=== PATIENT | male | born 1990 | race Hispanic/Latino ===

== ENCOUNTER 2018-01-03 13:20 | Emergency (ER) | payer SELFPAY ==
[~2018-01-03 13:20] MED LIST: METF500T6 PO; NAPR-1023 PO; OMEP20TA2 PO; TYL3 PO
[2018-01-03] MEDS ORDERED: ONDANSETRON HCL 4 MG/2 ML VIAL ONE (13:47)
[2018-01-03] MEDS ORDERED: MORPHINE SULFATE 4 MG/1ML SYG ONE (13:48)
[2018-01-03 13:50] LABS: BASOPHILS % (AUTO) 0.4 % (0.0-5.0); EOSINOPHILS % (AUTO) 0.9 % (0.0-8.0); HEMATOCRIT 45.4 % (42-54); LYMPHOCYTES % (AUTO) 18.7 % (21.0-51.0); MEAN CORPUSCULAR HEMOGLOBIN 27.9 pg (27.0-33.0); MEAN CORPUSCULAR HGB CONC 34.1 g/dL (32.0-36.0); MEAN CORPUSCULAR VOLUME 81.8 fL (79-99); MONOCYTES % (AUTO) 7.1 % (3.0-13.0); NEUTROPHILS % (AUTO) 72.9 % (40.0-77.0); PLATELET COUNT (AUTO) 288 K/uL (130-400); RED BLOOD CELL COUNT(AUTO) 5.54 MIL/uL (4.50-6.20); WHITE BLOOD COUNT (AUTO) 10.6 K/uL (4.8-10.8)
[2018-01-03] MEDS ORDERED: IOPAMIDOL-370 75 ML VIAL IV ONE (14:06)
[2018-01-03 14:19] LABS: POTASSIUM 3.7 mmol/L (3.5-5.1)
[2018-01-03 14:23] LABS: ALBUMIN 4.2 g/dL (3.5-5.0); BILIRUBIN,TOTAL 0.6 mg/dL (0.2-1.0); TOTAL PROTEIN, SERUM 8.4 g/dL (6.0-8.3)
== END 2018-01-03 15:55 | disposition home or self-care (01) ==
LOC: EDH 13:20
DX: R10.30 Lower abdominal pain, unspecified (principal); K21.9 Gastro-esophageal reflux disease without esophagitis
CPT/HCPCS: 36415; 74177; 80053; 85025; 96374; 96375; 99285; J2270; J2405; Q9967

== ENCOUNTER 2019-01-23 23:57 | Emergency (ER) | payer OTHER ==
[~2019-01-23 23:57] MED LIST changes: +METF-444 PO; -METF500T6 PO
== END 2019-01-24 00:26 | disposition home or self-care (01) ==
LOC: EDH 23:57
DX: S46.011A Strain of muscle(s) and tendon(s) of the rotator cuff of right shoulder, initial encounter (principal); E11.9 Type 2 diabetes mellitus without complications; K21.9 Gastro-esophageal reflux disease without esophagitis; Z90.49 Acquired absence of other specified parts of digestive tract; Z72.0 Tobacco use; X50.0XXA Overexertion from strenuous movement or load, initial encounter; Y93.89 Activity, other specified; Y92.89 Other specified places as the place of occurrence of the external cause; Y99.8 Other external cause status
CPT/HCPCS: 99281

== ENCOUNTER 2019-02-05 23:24 | Emergency (ER) | payer SELFPAY ==
[2019-02-06] MEDS ORDERED: DiphenhydrAMINE HCL 50 MG/ML VIAL ONE (00:32)
== END 2019-02-06 00:44 | disposition home or self-care (01) ==
LOC: EDH 23:24
DX: L29.9 Pruritus, unspecified (principal); L30.9 Dermatitis, unspecified; E11.9 Type 2 diabetes mellitus without complications; K21.9 Gastro-esophageal reflux disease without esophagitis; Z90.49 Acquired absence of other specified parts of digestive tract
CPT/HCPCS: 96372; 99283; J1200

== ENCOUNTER 2019-03-07 21:47 | Emergency (ER) | payer SELFPAY | END 2019-03-07 21:57 | disposition home or self-care (01) | LOC: EDH 21:47 | DX: M62.830 Muscle spasm of back (principal); E11.9 Type 2 diabetes mellitus without complications; K21.9 Gastro-esophageal reflux disease without esophagitis; Z90.49 Acquired absence of other specified parts of digestive tract; Z87.891 Personal history of nicotine dependence ==

== ENCOUNTER → 2020-04-01 16:14 | Emergency (ER) | payer OTHER ==
[~2020-04-01 16:14] MED LIST changes: +LIDOCAINE HCL 1% 20 ML VIAL ONE; +TETANUS/DIPHTHERIA TOXOID [ADULT] 0.5 ML VIAL IM ONE
== END | disposition home or self-care (01) ==
LOC: EDH 16:14
DX: S61.412A Laceration without foreign body of left hand, initial encounter (principal); E11.9 Type 2 diabetes mellitus without complications; K21.9 Gastro-esophageal reflux disease without esophagitis; Z90.49 Acquired absence of other specified parts of digestive tract; X58.XXXA Exposure to other specified factors, initial encounter; Y93.89 Activity, other specified; Y92.89 Other specified places as the place of occurrence of the external cause; Y99.8 Other external cause status
CPT/HCPCS: 12001; 73120; 73130; 90471; 90714

== ENCOUNTER 2020-07-18 14:25 | Emergency (ER) | payer OTHER ==
[~2020-07-18 14:25] MED LIST changes: -LIDOCAINE HCL 1% 20 ML VIAL ONE; -TETANUS/DIPHTHERIA TOXOID [ADULT] 0.5 ML VIAL IM ONE
[2020-07-18] MEDS ORDERED: KETOROLAC TROMETHAMINE 60 MG/2 ML VIAL ONE (14:45)
== END 2020-07-18 15:05 | disposition home or self-care (01) ==
LOC: EDH 14:25
DX: S93.402A Sprain of unspecified ligament of left ankle, initial encounter (principal); S93.602A Unspecified sprain of left foot, initial encounter; E11.9 Type 2 diabetes mellitus without complications; K21.9 Gastro-esophageal reflux disease without esophagitis; Z90.49 Acquired absence of other specified parts of digestive tract; X58.XXXA Exposure to other specified factors, initial encounter; Y93.89 Activity, other specified; Y92.89 Other specified places as the place of occurrence of the external cause; Y99.8 Other external cause status
CPT/HCPCS: 73600; 73630; 96372; 99284; J1885

== ENCOUNTER 2023-02-12 21:03 | Emergency (ER) | payer OTHER ==
[~2023-02-12] VITALS: Ht 175.3 cm; Wt 111.1 kg
[~2023-02-12 21:03] MED LIST changes: +CYCL10TA16 PO; +NAPR500T6 PO
[2023-02-12 21:45] LABS: BASOPHILS % (AUTO) 0.8 % (0.0-5.0); EOSINOPHILS % (AUTO) 2.9 % (0.0-8.0); HEMATOCRIT 43.6 % (42-54); LYMPHOCYTES % (AUTO) 27.9 % (21.0-51.0); MEAN CORPUSCULAR HEMOGLOBIN 28.2 pg (27.0-33.0); MEAN CORPUSCULAR HGB CONC 35.1 g/dL (32.0-36.0); MEAN CORPUSCULAR VOLUME 80.4 fL (79-99); NEUTROPHILS % (AUTO) 61.2 % (40.0-77.0); PLATELET COUNT (AUTO) 262 K/uL (130-400); RED BLOOD CELL COUNT(AUTO) 5.42 MIL/uL (4.50-6.20); RED CELL DISTRIBUTION WIDTH 12.2 % (11.0-15.5); WHITE BLOOD COUNT (AUTO) 11.3 K/uL (4.8-10.8)
[2023-02-12 21:52] LABS: CREATININE 0.9 mg/dL (0.5-1.5); POTASSIUM 3.9 mmol/L (3.5-5.1)
[2023-02-12 21:57] LABS: TOTAL PROTEIN, SERUM 7.8 g/dL (6.0-8.3)
[2023-02-12] MEDS ORDERED: MECLIZINE HCL 25 MG TABLET PO ONE (22:00)
[2023-02-12] MEDS ORDERED: 0.9%NACL 1000ML 1,000 ML IV SCH (22:00)
[2023-02-12] MEDS ORDERED: KETOROLAC 30MG VIAL (30MG/ML) IVP ONE (22:00)
[2023-02-12] MEDS ORDERED: ONDANSETRON 4MG INJ IVP ONE (22:00)
[2023-02-12] MEDS ORDERED: MECL-262 PO (22:23)
[2023-02-12] MEDS ORDERED: IBUP-1493 PO (22:23)
[2023-02-12] MEDS ORDERED: ONDA-104 PO (22:23)
[2023-02-12 23:16] VITALS: BP 131/60
== END 2023-02-12 23:32 | disposition home or self-care (01) ==
LOC: EDH 21:03
DX: G43.909 Migraine, unspecified, not intractable, without status migrainosus (principal); R42 Dizziness and giddiness; R11.2 Nausea with vomiting, unspecified; Z79.84 Long term (current) use of oral hypoglycemic drugs; Z79.899 Other long term (current) drug therapy; Z90.49 Acquired absence of other specified parts of digestive tract; Z98.890 Other specified postprocedural states
CPT/HCPCS: 99285; 96374; 70450; 96361; 96375; 80053; 85025; 36415; J7030; J2405; J1885

== ENCOUNTER 2024-05-02 22:28 | Emergency (ER) | payer OTHER ==
[~2024-05-02] VITALS: Ht 175.3 cm; Wt 104.3 kg
[~2024-05-02 22:28] MED LIST changes: +IBUP-1493 PO; +MECL-262 PO; +NAPR-1506 PO; -NAPR500T6 PO; +ONDA-104 PO
[2024-05-02 22:29] VITALS: BP 162/90; PULSE 87; RESP 16; TEMP 99
[2024-05-03] MEDS ORDERED: NAPR-1505 PO (00:20)
[2024-05-03] MEDS: NAPROXEN 500 MG TABLET PO ONE (00:49)
== END 2024-05-03 01:05 | disposition home or self-care (01) ==
LOC: EDH 22:28
DX: S86.911A Strain of unspecified muscle(s) and tendon(s) at lower leg level, right leg, initial encounter (principal); E11.9 Type 2 diabetes mellitus without complications; Z90.49 Acquired absence of other specified parts of digestive tract; Z98.890 Other specified postprocedural states; Z79.84 Long term (current) use of oral hypoglycemic drugs; Z79.899 Other long term (current) drug therapy; W18.39XA Other fall on same level, initial encounter; Y93.89 Activity, other specified; Y92.89 Other specified places as the place of occurrence of the external cause; Y99.8 Other external cause status
CPT/HCPCS: 29505; 73562

== ENCOUNTER 2024-06-12 16:07 | Emergency (ER) | payer OTHER ==
[~2024-06-12] VITALS: Ht 175.3 cm; Wt 106.6 kg
[~2024-06-12 16:07] MED LIST changes: +NAPR-1505 PO
[2024-06-12] MEDS ORDERED: ACET-2079 PO (16:16)
[2024-06-12] MEDS ORDERED: MELO10CA3 PO (16:16)
--- NOTE | 2024-06-12 16:19 | ERN ---
General Chief Complaint: Knee Injury/Swelling Stated Complaint: RIGHT KNEE PAIN SINCE MAY 02 Time Seen by MD: 16:07 Time Seen by Midlevel: 16:07 Source: patient History of Present Illness Initial Comments Patient is a 33-year-old male presenting to the emergency department for pain control. Patient is reporting pain to his right knee. He states that appro ximately one month ago he injured his right knee at work. He obtained multiple x-rays that were all negative. He was sent for an MRI and is results came back abnormal. He has been having pain but the [facility] that has been going through did not want to prescribe any medications so they sent him here for pain control. Patient has no other concerns at this time. Allergies: Coded Allergies: No Known Allergies (Unverified Allergy, Unknown, 03/23/17) Home Meds Active Scripts Acetaminophen with Codeine (Acetaminophen-Cod #3 Tablet) 300 Mg-30 Mg Tablet, 1 TAB PO TID PRN for pain for 5 Days, #15 TAB 0 Refills Prov:BRANDI AGUILAR 06/12/24 Meloxicam, Submicronized (Meloxicam) 10 Mg Capsule, 10 MG PO BID for 7 Days, #14 CAP Prov:BRANDI AGUILAR 06/12/24 Naproxen (Naproxen) 375 Mg Tablet., 375 MG PO BID for 7 Days, #14 TAB Prov:MIKE NAVA MD 05/03/24 Ondansetron HCl (Ondansetron HCl) 4 Mg Tablet, 4 MG PO TIDP PRN for VOMITING, #20 TAB Prov:BOB DE LA TORRE MD 02/12/23 Ibuprofen (Motrin/Advil) 800 Mg Tab, 800 MG PO TID, #30 TAB Prov:BOB DE LA TORRE MD 02/12/23 Meclizine HCl (Antivert) 25 Mg Tab.chew, 25 MG PO TID, #60 TAB Prov:BOB DE LA TORRE MD 02/12/23 Naproxen (Naproxen) 500 Mg Tablet., 500 MG PO BIDPC, #15 TAB Prov:RADHA ROONEY 02/27/22 Cyclobenzaprine HCl (Flexeril) 10 Mg Tab, 10 MG PO TID, #15 TAB Prov:RADHA ROONEY 02/27/22 Reported Medications Omeprazole Magnesium (Prilosec Otc) 20 Mg Tablet.dr, 20 MG PO [id number] PRN for ABDOMINAL PAIN, TAB 03/23/17 Acetaminophen with Codeine (Tylenol with Codeine #3) 1 Tab Tab, 1 TAB PO [id number], TAB 03/23/17 Naproxen (Naproxen) 500 Mg Tablet, 500 MG PO BID, TAB 03/23/17 Metformin HCl (Metformin HCl) 500 Mg Tablet, 500 MG PO BID, TAB 03/23/17 Past Medical History Past Medical History: No Pertinent History Past Surgical History: Appendectomy, Other Surgical History Other: HERNIA UMBILICAL WITH MESH Social History Social History: Negative ROS Dictation CONSTITUTIONAL: Negative except for HPI HEAD/FACE: Negative except for HPI EENT: Negative except for HPI RESPIRATORY: Negative except for HPI GASTROINTESTINAL/ABDOMINAL: Negative except for HPI GENITOURINARY: Negative except for HPI MUSCULOSKELETAL: Negative except for HPI INTEGUMENTARY: Negative except for HPI NEUROLOGICAL/PSYCH: Negative except for HPI HEMATOLOGIC/LYMPHATIC: Negative except for HPI All Systems Negative, Except as noted above. 13 point review of systems assessed and all negative except for above. Physical Exam Physical Exam Dictation PHYSICAL EXAM: GENERAL: alert,, awake oriented x 3 HEENT: EOMI, Sclera non icteric, moist mucosa NECK: Supple, no JVD, trachea midline LUNGS: Clear breath sounds bilaterally. No wheezes HEART: Regular rate and rhythm. Normal S1 and S2, without murmurs ABD: Abdomen soft, nontender. Bowel sounds present EXT: No clubbing or cyanosis, NEURO: Alert and oriented to person, follows commands MDM MDM: Patient is a 33-year-old male presenting to the emergency department for pain control. Patient is reporting pain to his right knee. He states that approximately one month ago he injured his right knee at work. He obtained multiple x-rays that were all negative. He was sent for an MRI and is results came back abnormal. He has been having pain but the [facility] that has been going through did not want to prescribe any medications so they sent him here for pain control. Patient has no other concerns at this time. On physical examination patient appears to be in pain secondary to his right knee. His right knee has full range motion. Patient will be given 2 mg of morphine and 30 mg of ketorolac IM. He will be discharged home with pain prescriptions. Patient is agreeable with this plan and all of his questions have been answered. Patient is stable for discharge Differential diagnosis: Knee pain, knee strain, There are no social concerns with this patient. Prescription drug management Prescriptions will include: Tylenol with codeine, meloxicam Medical management and examination interpretation discussions were had by me with other qualified healthcare professionals as indicated for the patient's care. ED Course Orders Procedure Category Date Status Time Morphine 2mg Syg PHA 06/12/24 Complete (Morphine 2mg Syg) 16:30 Ketorolac PHA 06/12/24 Complete Tromethamine 30mg/Ml 16:30 Current Medications Medications (Trade) Dose Ordered Sig/Evaristo Route PRN Reason Start Time Stop Time Status Last Admin Dose Admin Ketorolac Tromethamine (toRADol) 30 mg ONCE ONCE IM 06/12/24 16:30 06/12/24 16:31 DC 06/12/24 17:01 Morphine Sulfate (morPHINE 2MG SYG) 2 mg ONCE ONCE IM 06/12/24 16:30 06/12/24 16:31 DC 06/12/24 17:01 Vital Signs Date Time Temp Pulse Resp B/P (MAP) Pulse Ox O2 Delivery O2 Flow Rate FiO2 06/12/24 16:21 98.4 85 20 134/91 98 Room Air* 0 21 06/12/24 16:07 99.3 85 20 134/91 98 Room Air DX & DISP Disposition: Discharge Departure Impression: Primary Impression: Right knee pain Condition: Stable Scripts Acetaminophen with Codeine (Acetaminophen-Cod #3 Tablet) 300 Mg-30 Mg Tablet 1 TAB PO TID PRN for pain for 5 Days, #15 TAB 0 Refills Prov: BRANDI AGUILAR 06/12/24 Meloxicam, Submicronized (Meloxicam) 10 Mg Capsule 10 MG PO BID for 7 Days, #14 CAP Prov: BRANDI AGUILAR 06/12/24 Referrals: JAMEL ERICKSON MD (PCP) I have reviewed the case, and I agree with, Diagnosis and Plan I performed the substantive portion of the visit. I have reviewed and personally made and approve the management plan that is documented in the note by myself or the ELL[facility]. I acknowledge for responsibility for the patient's management plan. BRANDI AGUILAR Jun 12, 2024 16:19 PATRICK RIGGS DO Jun 13, 2024 07:33
[2024-06-12 16:21] VITALS: BP 134/91; PULSE 85; RESP 20; TEMP 98.4; O2SAT 98
[2024-06-12] MEDS: morPHINE 2 MG SYG IM ONE (17:01)
[2024-06-12] MEDS: ketOROlac 30MG VIAL (30MG/ML) IM ONE (17:01)
== END 2024-06-12 17:38 | disposition home or self-care (01) ==
LOC: EDH 16:07
DX: M25.561 Pain in right knee (principal); Z79.1 Long term (current) use of non-steroidal anti-inflammatories (NSAID); Z79.84 Long term (current) use of oral hypoglycemic drugs; Z90.49 Acquired absence of other specified parts of digestive tract
CPT/HCPCS: 99284; 96372 ×2; J2270; J1885

== ENCOUNTER 2025-02-02 11:48 | Emergency (ER) | payer OTHER, BC ==
[~2025-02-02] VITALS: Ht 175.3 cm; Wt 106.6 kg
[~2025-02-02 11:48] MED LIST changes: +ACET-2079 PO; +MELO10CA3 PO; -NAPR-1023 PO; +NAPR-1194 PO
[2025-02-02] MEDS: ORPHENADRINE 60MG/2ML IM ONE (12:47)
--- NOTE | 2025-02-02 12:51 | ERN ---
General Chief Complaint: Shoulder Injury/Pain Stated Complaint: NECK /LEFT SHOUDLER PAIN Time Seen by MD: 12:01 Source: patient History of Present Illness Initial Comments Patient is a 34 year old male coming in complaining of muscle strain in his right and left trapezius area. He states that the pain started this morning when he woke up. He states that the pain is in increased with movement. Allergies: Coded Allergies: No Known Allergies (Unverified Allergy, Unknown, 03/23/17) Home Meds Active Scripts Acetaminophen with Codeine (Acetaminophen-Cod #3 Tablet) 300 Mg-30 Mg Tablet, 1 TAB PO TID PRN for pain for 5 Days, #15 TAB 0 Refills Prov:BRANDI AGUILAR 06/12/24 Meloxicam, Submicronized (Meloxicam) 10 Mg Capsule, 10 MG PO BID for 7 Days, #14 CAP Prov:BRANDI AGUILAR 06/12/24 Naproxen (Naproxen) 375 Mg Tablet., 375 MG PO BID for 7 Days, #14 TAB Prov:MIKE NAVA MD 05/03/24 Ondansetron HCl (Ondansetron HCl) 4 Mg Tablet, 4 MG PO TIDP PRN for VOMITING, #20 TAB Prov:BOB DE LA TORRE MD 02/12/23 Ibuprofen (Motrin/Advil) 800 Mg Tab, 800 MG PO TID, #30 TAB Prov:BOB DE LA TORRE MD 02/12/23 Meclizine HCl (Antivert) 25 Mg Tab.chew, 25 MG PO TID, #60 TAB Prov:BOB DE LA TORRE MD 02/12/23 Naproxen (Naproxen) 500 Mg Tablet., 500 MG PO BIDPC, #15 TAB Prov:RADHA ROONEYP 02/27/22 Cyclobenzaprine HCl (Flexeril) 10 Mg Tab, 10 MG PO TID, #15 TAB Prov:RADHA ROONEY AD COMPOSITOR 02/27/22 Reported Medications Omeprazole Magnesium (Prilosec Otc) 20 Mg Tablet., 20 MG PO [id number] PRN for ABDOMINAL PAIN, TAB 03/23/17 Acetaminophen with Codeine (Tylenol with Codeine #3) 1 Tab Tab, 1 TAB PO [id number], TAB 03/23/17 Naproxen (Naproxen) 500 Mg Tablet, 500 MG PO BID, TAB 03/23/17 Metformin HCl (Metformin HCl) 500 Mg Tablet, 500 MG PO BID, TAB 03/23/17 Past Medical History Past Medical History: No Pertinent History Past Surgical History: Appendectomy Surgical History Other: RT KNEE, UMB HERNIA REPAIR Social History Social History: Negative ROS Dictation CONSTITUTIONAL: No chills, no fever, no weakness, no diaphoresis, no malaise. HEAD/FACE: No signs of trauma. EENT: No eye pain, no blurred vision, no tearing, no double vision, no ear pain, no ear discharge, no nose pain, no nasal congestion, no throat pain, no throat swelling, no mouth pain. RESPIRATORY: No cough, no orthopnea, no SOB, no stridor, no wheezing. CARDIOVASCULAR: No chest pain, no edema, no palpitations, no syncope. GASTROINTESTINAL/ABDOMINAL: No abdominal pain, no constipation, no diarrhea, no nausea, no vomiting. GENITOURINARY: No abnormal discharge, no dysuria, no frequent urination, no hematuria. No complaints of pain in the genitals. MUSCULOSKELETAL: No back pain, no gout, no joint pain, no joint swelling, muscle pain, no muscle stiffness, no neck pain. INTEGUMENTARY: No change in color, no change in hair/nails, no dryness, no lesion, no lumps, no rash. NEUROLOGICAL/PSYCH: No anxiety, not depressed, no emotional problem, no headache, no numbness, no pre-existing deficit, no history of seizures, no tremors, no weakness. HEMATOLOGIC/LYMPHATIC: Not anemic, no history of blood clots, no apparent bleeding, no bruising, glands not swollen. All Systems Negative, Except as Noted. Physical Exam Physical Exam Dictation VITAL SIGNS: Reviewed. GENERAL APPEARANCE: Alert, oriented x3, no acute distress, obese. HEAD AND FACE: Non-traumatic. EYES: PERRL, pink conjunctivas, eyelid no trauma, anterior chamber clear. EARS: Pinnas intact and no signs of trauma or erythema. Ear canals clear and no discharge. TMs no erythema. NOSE: No discharge, no bleeding. OROPHARYNX: Mouth normal, teeth no caries, tongue pink. Pharynx clear, no erythema. Tonsils no exudates, no abscesses noted. Mucous membrane moist. NECK: Supple, non-tender, no thyromegaly, no masses, no JVD, no bruits. BREAST: Deferred. CHEST: No tenderness, no crepitus, no paradoxical movement, no retractions. LUNGS: Clear, well-ventilated, symmetric, no rales, no wheezing, no rhonchi, no stridor, good breath sounds bilaterally. HEART: Regular rate, regular rhythm, no murmur, no gallops. VASCULAR: No peripheral edema. ABDOMEN: Soft, positive bowel sounds, nondistended, no guarding, nontender, no rebound, no masses no hepatomegaly, no splenomegaly, no Owens's sign, no hernias. RECTAL: Deferred. GENITAL: Deferred. NEUROLOGICAL: Normal speech, gross motor function intact, gross sensory function intact. MUSCULOSKELETAL: Neck nontender, full range of motion, back nontender, full range of motion. EXTREMITIES: Nontender, full range of motion. Bilateral trapezius muscle tenderness, subscapularis muscle tenderness SKIN: Color pink, dry, no turgor, no rash, no lacerations, no abrasions, no contusions. LYMPHATICS: Deferred. Results Laboratory and Microbiology Labs Reviewed?: Yes MDM MDM: Differential diagnosis: Muscle strain, trapezius muscle spasm, subscapularis muscle tenderness Rationale: Tests considered and ordered secondary to shared decision making include: Previous outside records reviewed: Old ER visits. Risk of complication and/or morbidity or mortality of patient management: None Medications-Per medication reconciliation Need for hospitalization: Patient does not meet criteria for hospitalization. Patient is a 34-year-old male coming in complaining of bilateral trapezius muscle tenderness. He states that the pain started in the morning after waking up. He also states that the pain is exacerbated with movement on physical exam there is tenderness to the trapezius muscles bilateral as well as subscapularis muscle. Patient received anti-inflammatories antispasmodics he will be discharged in stable condition with a diagnosis of muscle spasms/muscle strain. ED Course Orders Procedure Category Date Status Time Orphenadrine Citrate PHA 02/02/25 Complete (Norflex) 12:30 Ketorolac PHA 02/02/25 Complete Tromethamine 30mg/Ml 12:30 Current Medications Medications (Trade) Dose Ordered Sig/Evaristo Route PRN Reason Start Time Stop Time Status Last Admin Dose Admin Ketorolac Tromethamine (toRADol) 30 mg ONCE ONCE IM 02/02/25 12:30 02/02/25 12:31 DC 02/02/25 12:47 Orphenadrine Citrate (Norflex) 60 mg ONCE ONCE IM 02/02/25 12:30 02/02/25 12:31 DC 02/02/25 12:47 Vital Signs Date Time Temp Pulse Resp B/P (MAP) Pulse Ox O2 Delivery O2 Flow Rate FiO2 02/02/25 12:10 98.6 88 18 152/81 99 Room Air* 0 21 02/02/25 11:53 98.6 97 18 164/88 99 Room Air 0 DX & DISP Disposition: Discharge Departure Impression: Primary Impression: Muscle strain of upper back Condition: Stable Additional Instructions: FOLLOW-UP WITH PRIMARY CARE PROVIDER IN 1 TO 2 DAYS. TAKE MEDICATIONS DIRECTED HERE IN THE EMERGENCY ROOM. OKAY TO CONTINUE HOME MEDICATIONS UNLESS OTHERWISE DISCUSSED DURING YOUR VISIT IN THE EMERGENCY ROOM TODAY. RETURN TO YOUR NEAREST EMERGENCY ROOM IF SYMPTOMS WORSEN OR IF THERE IS NO IMPROVEMENT. CALL 911 IF YOU NEED IMMEDIATE ASSISTANCE. TAKE TYLENOL [id number] NE EDED AND IF NO CONTRAINDICATIONS ARE PRESENT. INCREASE ORAL HYDRATION. A WOUND CULTURE OR URINE CULTURE WAS ORDERED HERE IN THE EMERGENCY ROOM DEPARTMENT PLEASE FOLLOW-UP WITH PRIMARY CARE PROVIDER AND ADVISE THEM TO GET REPORTS FROM OUR FACILITY. IF YOU HAD ANY JIM WRAP/SPLINTS THAT WERE APPLIED HERE, PLEASE DO NOT REMOVE THEM UNTIL YOU SEE YOUR PRIMARY CARE OR SPECIALTY. Referrals: Referrals: JAMEL ERICKSON MD (PCP) Time of Disposition: 12:51 MIKE NAVA MD Feb 02, 2025 12:51
[2025-02-02 13:01] VITALS: BP 138/74; PULSE 82; RESP 18; TEMP 98.6; O2SAT 99
== END 2025-02-02 13:01 | disposition home or self-care (01) ==
LOC: EDH 11:48
DX: S29.012A Strain of muscle and tendon of back wall of thorax, initial encounter (principal); Z79.1 Long term (current) use of non-steroidal anti-inflammatories (NSAID); Z79.84 Long term (current) use of oral hypoglycemic drugs; Z90.49 Acquired absence of other specified parts of digestive tract; Z98.890 Other specified postprocedural states; X58.XXXA Exposure to other specified factors, initial encounter; Y93.89 Activity, other specified; Y92.89 Other specified places as the place of occurrence of the external cause; Y99.8 Other external cause status
CPT/HCPCS: 99284; 96372 ×2; J1885; J2360